=== PATIENT | female | born 1990 | race Two or more races ===

== ENCOUNTER 2017-11-28 07:04 | Emergency (ER) | payer SELFPAY ==
[~2017-11-28] VITALS: Ht 167.6 cm; Wt 80.7 kg
[2017-11-28 07:38] VITALS: BP 99/61
[2017-11-28] MEDS ORDERED: ACETAMINOPHEN 325 MG TAB PO ONE (07:45)
[2017-11-28] MEDS ORDERED: cefTRIAXone SOD 1,000 MG VL IM ONE (08:15)
[2017-11-28] MEDS ORDERED: methylPREDNISolone SOD SUCC 125 MG/2 ML VL IM ONE (08:15)
== END 2017-11-28 08:55 | disposition home or self-care (01) ==
LOC: ER 07:04
DX: J03.90 Acute tonsillitis, unspecified (principal)
CPT/HCPCS: 96372; 99284; J0696; J2930

== ENCOUNTER 2020-11-06 10:18 | Emergency (ER) | payer MEDICAID, OTHER ==
[~2020-11-06] VITALS: Ht 160 cm; Wt 59.0 kg
[2020-11-06 10:20] VITALS: BP 128/96
[2020-11-06 11:28] LABS: Urine Bacteria FEW /hpf (None Seen); Urine Blood Negative /uL (Negative); Urine Mucus FEW (None Seen); Urine WBC 4 /hpf (0 - 5)
[2020-11-06] MEDS ORDERED: ONDANSETRON ODT 4 MG TAB PO ONE (11:30)
== END 2020-11-06 12:04 | disposition home or self-care (01) ==
LOC: ER 10:18
DX: R11.2 Nausea with vomiting, unspecified (principal); R51.9 Headache, unspecified; F10.129 Alcohol abuse with intoxication, unspecified; Y90.9 Presence of alcohol in blood, level not specified
CPT/HCPCS: 81001; 81025; 99283; Q0162

== ENCOUNTER 2023-04-07 15:35 | Emergency (ER) | payer SELFPAY ==
[~2023-04-07] VITALS: Ht 160 cm; Wt 65.3 kg
[2023-04-07] MEDS ORDERED: traMADol HCL 50 MG TAB PO ONE (20:30)
[2023-04-07 21:47] VITALS: BP 104/73
== END 2023-04-07 21:52 | disposition home or self-care (01) ==
LOC: ER 15:35
DX: S22.31XA Fracture of one rib, right side, initial encounter for closed fracture (principal); F32.9 Major depressive disorder, single episode, unspecified; V89.2XXA Person injured in unspecified motor-vehicle accident, traffic, initial encounter; Y93.89 Activity, other specified; Y92.89 Other specified places as the place of occurrence of the external cause; Y99.8 Other external cause status
CPT/HCPCS: 71045